=== PATIENT | female | born 1965 | race Caucasian/White ===

== ENCOUNTER → 2020-12-27 | Outpatient (CLI) | payer OTHER ==
[~2020-12-27] MED LIST: AMLODIPINE BESYL5 MG PO; CATAPRES 0.1MG0.1 MG PO; COZAAR25 MG PO; DAILY VALUE1 EACH PO; DICLOFENAC GEL 1% TOP; ELIQUIS2.5 MG PO; HYDROCHLOROTHIA25 MG PO; HYDROCODON-ACE1 EAC6 PO; HYGROTON TAB 2525 MG PO; LIPITOR40 MG PO; LO-DOSE ASPIRIN81 MG PO; NEURONTIN600 MG PO; NITROSTAT0.4 MG SL; OMEPRAZOLE20 M1 PO; TOPAMAX200 MG PO; TRELEGY ELLIPT1 EACH INH; VENTOLIN HFA 66.7 GM INH; ZINC-22050 MG PO
[2020-12-27 14:34] LABS: HEMOGLOBIN 14.3 gm/dl (12.3-15.3); RED BLOOD COUNT 4.8 M/UL (4.00-5.10); WHITE BLOOD COUNT 6.9 K/UL (4.5-11.0)
[2020-12-27 14:57] LABS: BUN/CREATININE RATIO 21 (0-10)
== END ==
LOC: OPSV2 11:00
PROVIDERS: Orthopaedic Surgery
DX: Z01.818 Encounter for other preprocedural examination (principal)
CPT/HCPCS: 36415; 71046; 80048; 81001; 85027; 87081; 93005

== ENCOUNTER → 2021-01-06 | Outpatient (CLI) | payer OTHER ==
[2021-01-06 14:24] LABS: BUN/CREATININE RATIO 39 (0-10)
== END ==
LOC: LAB 13:37
PROVIDERS: Orthopaedic Surgery
DX: Z01.812 Encounter for preprocedural laboratory examination (principal)
CPT/HCPCS: 36415; 80048; 86850; 86900; 86901

== ENCOUNTER 2021-01-07 05:53 | Day surgery (SDC) | payer OTHER ==
[~2021-01-07] VITALS: Ht 162.6 cm; Wt 103.4 kg
[~2021-01-07 05:53] MED LIST changes: -AMLODIPINE BESYL5 MG PO; -DAILY VALUE1 EACH PO; -ELIQUIS2.5 MG PO; -HYGROTON TAB 2525 MG PO; -TOPAMAX200 MG PO; -ZINC-22050 MG PO
[2021-01-07] MEDS ORDERED: DAILY VALUE1 EACH PO (18:11)
[2021-01-07] MEDS ORDERED: ZINC-22050 MG PO (18:11)
[2021-01-07] MEDS ORDERED: AMLODIPINE BESYL5 MG PO (18:12)
[2021-01-07] MEDS ORDERED: TOPAMAX200 MG PO (18:12)
[2021-01-07] MEDS ORDERED: HYGROTON TAB 2525 MG PO (18:13)
[2021-01-08 04:48] LABS: HEMOGLOBIN 12.8 gm/dl (12.3-15.3); RED BLOOD COUNT 4.4 M/UL (4.00-5.10); WHITE BLOOD COUNT 11.8 K/UL (4.5-11.0)
[2021-01-08 05:04] LABS: BUN/CREATININE RATIO 29 (0-10)
[2021-01-08] MEDS ORDERED: ELIQUIS2.5 MG PO ×2 (09:44→13:26)
== END 2021-01-08 16:51 | disposition home or self-care (01) ==
LOC: OR 05:53 → EDSTATUS 09:00 → M/S 17:19 → OR 01-08 16:51
PROVIDERS: Orthopaedic Surgery
DX: M16.0 Bilateral primary osteoarthritis of hip (principal); G89.29 Other chronic pain; I11.9 Hypertensive heart disease without heart failure; E78.5 Hyperlipidemia, unspecified; K21.9 Gastro-esophageal reflux disease without esophagitis; J44.9 Chronic obstructive pulmonary disease, unspecified; I25.2 Old myocardial infarction; G47.33 Obstructive sleep apnea (adult) (pediatric); E66.9 Obesity, unspecified; F41.0 Panic disorder [episodic paroxysmal anxiety]; F17.210 Nicotine dependence, cigarettes, uncomplicated; F11.20 Opioid dependence, uncomplicated; Z23 Encounter for immunization; Z79.82 Long term (current) use of aspirin; Z79.899 Other long term (current) drug therapy
CPT/HCPCS: 36415; 36430; 72170; 73501; 76000; 80048; 85025; 90686; 93005; 94640; 94664; 94760; 97110-GP-CQ; 97116; 97116-GP-CQ; 97161; 97166; 97535; C1776; G0008; J0171; J0690; J1100; J1170; J2001; J2250; J2270; J2405; J2704; J2795; J3010; J3370; J7050; J7120

== ENCOUNTER 2021-01-09 22:38 | Emergency (ER) | payer OTHER ==
[~2021-01-09 22:38] MED LIST changes: +AMLODIPINE BESYL5 MG PO; +DAILY VALUE1 EACH PO; +ELIQUIS2.5 MG PO; +HYGROTON TAB 2525 MG PO; +TOPAMAX200 MG PO; +ZINC-22050 MG PO
[2021-01-10 01:15] LABS: HEMOGLOBIN 13.4 gm/dl (12.3-15.3); RED BLOOD COUNT 4.5 M/UL (4.00-5.10)
[2021-01-10 01:16] LABS: WHITE BLOOD COUNT 16.6 K/UL (4.5-11.0)
[2021-01-10 01:28] LABS: BUN/CREATININE RATIO 26 (0-10)
== END 2021-01-10 11:50 | disposition home or self-care (01) ==
LOC: ER1 22:38
PROVIDERS: Physician Assistant
DX: G89.18 Other acute postprocedural pain (principal); M25.552 Pain in left hip; S72.115A Nondisplaced fracture of greater trochanter of left femur, initial encounter for closed fracture; F17.210 Nicotine dependence, cigarettes, uncomplicated; W22.8XXA Striking against or struck by other objects, initial encounter
CPT/HCPCS: 73502; 73700; 80053; 83605; 85025; 85652; 86140; 93005; 93926; 93971; 96374; 96375; 96376; 99284; J2270; J2405

== ENCOUNTER 2021-01-11 22:45 | Emergency (ER) | payer OTHER | END 2021-01-12 02:30 | disposition home or self-care (01) | LOC: ER1 22:45 | DX: G89.18 Other acute postprocedural pain (principal); M25.552 Pain in left hip; I10 Essential (primary) hypertension; F17.210 Nicotine dependence, cigarettes, uncomplicated | CPT/HCPCS: 96372; 99283; J2270 ==